=== PATIENT | male | born 1940 | race Caucasian/White ===

== ENCOUNTER 2018-04-30 08:01 | Outpatient (CLI) | payer MEDICARE | END 2018-04-30 08:02 | disposition home or self-care (01) | LOC: BICRAD 08:01 | PROVIDERS: ATTEND Internal Medicine Critical Care Medicine | DX: R06.00 Dyspnea, unspecified (principal); J98.4 Other disorders of lung | CPT/HCPCS: 71046 ==

== ENCOUNTER 2019-04-29 08:23 | Outpatient (CLI) | payer MEDICARE ==
--- NOTE | 2019-04-29 08:42 | RAD ---
XR Chest Pa Lat STANDARD HISTORY: Dyspnea COMPARISON: 04/30/2018 FINDINGS: The heart size is normal. The lungs are well expanded without focal areas of consolidation, pneumothorax or pleural effusions. Pleural-based density in the left lower lateral chest and blunting of the left costophrenic angle are stable. Changes of median sternotomy again seen. Left-zeina ed AICD remains in place. IMPRESSION: No radiographic evidence of acute cardiopulmonary process.
== END 2019-04-29 08:24 | disposition home or self-care (01) ==
LOC: BICRAD 08:23
PROVIDERS: ATTEND Internal Medicine Critical Care Medicine
DX: R06.00 Dyspnea, unspecified (principal)
CPT/HCPCS: 71046

== ENCOUNTER 2020-04-30 09:11 | Outpatient (CLI) | payer MEDICARE ==
--- NOTE | 2020-04-30 09:27 | RAD ---
2 VIEWS CHEST: Date: 04/30/2020 PROVIDED CLINICAL HISTORY: Dyspnea. FINDINGS: Comparison with 04/29/2019. Cardiac and mediastinal silhouette is unchanged in appearance. Median sternotomy changes and left sub clavian cardiac pacing device are redemonstrated. Blunting of the left lateral and posterior costophr enic angles is similar to prior and could reflect pleural fluid or pleural scarring. Prominence of th e pulmonary interstitium is redemonstrated. No lobar consolidation or pneumothorax evident. IMPRESSION: Stable radiographic appearance of the chest. POS: [facility]
== END 2020-04-30 09:12 | disposition home or self-care (01) ==
LOC: BICRAD 09:11
PROVIDERS: ATTEND Internal Medicine Critical Care Medicine
DX: R06.00 Dyspnea, unspecified (principal)
CPT/HCPCS: 71046